=== PATIENT | female | born 1980 | race Caucasian/White ===

== ENCOUNTER 2016-10-18 10:22 | Emergency (ER) | payer OTHER ==
[~2016-10-18] VITALS: Ht 157.5 cm; Wt 83.6 kg
[2016-10-18] MEDS ORDERED: CLIN300C3 PO (10:28)
[2016-10-18] MEDS ORDERED: HYDROCODONE/ACETAMINOPHEN 10-325 MG TABLET PO ONE (11:15)
[2016-10-18 13:20] VITALS: BP 131/77
[2016-10-19] MEDS ORDERED: IBUP-1547 PO (20:01)
== END 2016-10-18 13:21 | disposition home or self-care (01) ==
LOC: EMS 10:24
DX: H60.93 Unspecified otitis externa, bilateral (principal); H66.93 Otitis media, unspecified, bilateral
CPT/HCPCS: 99283

== ENCOUNTER 2016-10-19 19:20 | Emergency (ER) | payer OTHER ==
[~2016-10-19] VITALS: Ht 162.6 cm; Wt 81.5 kg
[~2016-10-19 19:20] MED LIST: CLIN300C3 PO
[2016-10-19] MEDS ORDERED: ACETAMINOPHEN 500 MG TABLET PO ONE (20:00)
[2016-10-19] MEDS ORDERED: IBUP-2071 PO (20:01)
[2016-10-19] MEDS ORDERED: KETOROLAC TROMETHAMINE 60 MG/2 ML VIAL IM ONE (22:00)
[2016-10-19] MEDS ORDERED: CIPROFLOXACIN HCL 250 MG TABLET PO ONE (22:15)
[2016-10-19 22:50] VITALS: BP 136/77
== END 2016-10-19 22:51 | disposition home or self-care (01) ==
LOC: EMS 19:21
DX: H61.001 Unspecified perichondritis of right external ear (principal); H61.031 Chondritis of right external ear; H60.93 Unspecified otitis externa, bilateral
CPT/HCPCS: 96372; 99283; J1885